=== PATIENT | female | born 1945 | race Caucasian/White ===

== ENCOUNTER → 2017-03-26 | Outpatient (CLI) | payer MEDICARE ==
--- NOTE | 2017-03-27 09:29 | MM ---
Reason for exam: screening (asymptomatic). Last mammogram was performed 1 year and 4 months ago. History: Patient is postmenopausal, has history of other cancer at age 65, and had first child at age 32. Benign excisional biopsy of the right breast. Took estrogen for 5 years beginning at age 52. Took progesterone for 5 years 8 months beginning at age 52. Taking other hormone for 2 years. Physical Findings: A clinical breast exam by your physician is recommended on an annual basis and results should be correlated with mammographic findings. MG 3D Screening Mammo W/Cad Bilateral CC and MLO view(s) were taken. Prior study comparison: November 13, 2015, bilateral MG 3d diag mammo w/cad [facility]. November 29, 2014, bilateral MG screening mammo w CAD. The breast tissue is heterogeneously dense. This may lower the sensitivity of mammography. No suspicious abnormality. No significant changes when compared with prior studies. ASSESSMENT: Negative, BI-RAD 1 RECOMMENDATION: Routine screening mammogram of both breasts in 1 year.
== END | disposition home or self-care (01) ==
LOC: RADMAMWWP 13:43
PROVIDERS: ATTEND Internal Medicine Geriatric Medicine
DX: Z12.31 Encounter for screening mammogram for malignant neoplasm of breast (principal)
CPT/HCPCS: 77063; 77067

== ENCOUNTER 2018-03-12 02:58 | Emergency (ER) | payer MEDICARE ==
[2018-03-12] MEDS ORDERED: SODIUM CHLORIDE 0.9% 500 ML 500 ML IV STA (03:08)
[2018-03-12 03:47] LABS: Basophils # (A) 0.1 k/uL (0-0.2); Basophils % (A) 1 %; Eosinophils # (A) 0.1 k/uL (0-0.7); Eosinophils % (A) 2 %; HCT 39.5 % (34.0-46.0); HGB 12.7 gm/dL (11.4-16.0); Lymphocytes # (A) 1.4 k/uL (1.0-4.8); Lymphocytes % (A) 23 %; MCH 29.4 pg (25.0-35.0); MCHC 32.1 g/dL (31.0-37.0); MCV 91.7 fL (80.0-100.0); Mean Platelet Volume 7.1; Monocytes # (A) 0.5 k/uL (0-1.0); Monocytes % (A) 8 %; Neutrophils % (A) 65 %; Platelet Count 297 k/uL (150-450); RBC 4.31 m/uL (3.80-5.40); RDW 12.5 % (11.5-15.5); WBC 6.1 k/uL (3.8-10.6)
--- NOTE | 2018-03-12 03:49 | XR ---
EXAMINATION TYPE: XR chest 2V DATE OF EXAM: 03/12/2018 COMPARISON: NONE HISTORY: Chest pain TECHNIQUE: Frontal and lateral views of the chest are obtained. FINDINGS: Heart and mediastinum are normal. Lungs are clear. Diaphragm is normal. There are chest le ads. Bony thorax is intact. IMPRESSION: Normal chest. Normal heart.
[2018-03-12 03:54] LABS: Albumin 3.4 g/dL (3.5-5.0); Calcium 8.9 mg/dL (8.4-10.2); Magnesium 2.5 mg/dL (1.6-2.3); Potassium 4.8 mmol/L (3.5-5.1); Total Bilirubin 0.4 mg/dL (0.2-1.3); Total Protein 6.1 g/dL (6.3-8.2)
[2018-03-12 04:11] LABS: Creatine Kinase 21 U/L (30-135)
[2018-03-12 04:12] LABS: Partial Thromboplastin Time 21.9 sec (22.0-30.0); Prothrombin Time 10.5 sec (9.0-12.0)
[2018-03-12 04:22] LABS: Creatine Kinase MB 0.2 ng/mL (0.0-2.4); Troponin I <0.012 ng/mL (0.000-0.034)
--- NOTE | 2018-03-12 04:30 | ED ---
General Adult HPI - General Chief complaint: Chest Pain Stated complaint: CHEST PAIN Time Seen by Provider: 03/12/18 03:08 Source: patient Mode of arrival: ambulatory Limitations: no limitations - History of Present Illness Initial comments: Caridad is a previously healthy and very pleasant 72-year-old female who presents the emergency department today for evaluation of sudden onset epigastric and retrosternal pain that woke her from sleep. Patient reports that she's been battling URI-like symptoms recently but has been otherwise feeling well. She reports she was feeling okay when she went to bed last night. She reports that she was woken with a sudden stabbing pain in the epigastrium and retrosternal area. She reports the pain was so severe she became sweaty and was feeling quite unwell. She reports the sensation lasted for approximately 30 minutes and then resolved completely however she decided to come to the ER for further evaluation. Patient has no history of cardiac disease, no hypertension, hyperlipidemia no history of smoking. Patient has no known GI pathology, she has had a cholecystectomy, she has no history of pancreatitis. - Related Data Home Medications Medication Instructions Recorded Confirmed Fexofenadine HCl [Natalie Allergy] 180 mg PO DAILY 03/12/18 03/12/18 Magnesium 200 mg PO DAILY 03/12/18 03/12/18 Multivitamins, Thera [Multivitamin 1 tab PO DAILY 03/12/18 03/12/18 (formulary)] Allergies Allergy/AdvReac Type Severity Reaction Status Date / Time doxycycline Allergy Rash/Hives Verified 03/12/18 06:59 Sulfa (Sulfonamide Allergy Rash/Hives Verified 03/12/18 06:59 Antibiotics) Review of Systems ROS Statement: Those systems with pertinent positive or pertinent negative responses have been documented in the HPI. ROS Other: All systems not noted in ROS Statement are negative. Past Medical History Past Medical History: No Reported History History of Any Multi-Drug Resistant Organisms: None Reported Past Surgical History: Cholecystectomy Past Psychological History: No Psychological Hx Reported Smoking Status: Never smoker Past Alcohol Use History: Occasional Past Drug Use History: None Reported General Exam - General Exam Comments Initial Comments: Physical Exam GENERAL: Patient is well-developed and well-nourished. Patient is nontoxic and well- hydrated and is in no distress. HENT: Normocephalic, Atraumatic. EYES: PERRL, EOMI PULMONARY: Unlabored respirations. No audible rales rhonchi or wheezing was noted. CARDIOVASCULAR: There is a regular rate and rhythm without any murmurs gallops or rubs. ABDOMEN: Soft and nontender with normal bowel sounds. SKIN: Skin is clear with no lesions or rashes and otherwise unremarkable. : Deferred NEUROLOGIC: Patient is alert and oriented x3. Moving all extremities spontaneously MUSCULOSKELETAL: Normal extremities with adequate strength and full range of motion. No lower extremity swelling or edema. No calf tenderness. PSYCHIATRIC: Normal psychiatric evaluation. Limitations: no limitations Limitations: no limitations Course Vital Signs 03/12/18 03/12/18 03/12/18 03:00 03:19 03:25 Temperature 97.6 F 98.6 F Pulse Rate 65 60 64 Respiratory 20 14 Rate Blood Pressure 105/56 115/63 O2 Sat by Pulse 100 100 100 Oximetry 03/12/18 03/12/18 03/12/18 04:00 05:00 08:00 Temperature 97.8 F Pulse Rate 61 64 78 Respiratory 16 Rate Blood Pressure 103/64 93/57 112/68 O2 Sat by Pulse 98 99 98 Oximetry EKG Findings - EKG Comments: EKG Findings:: EKG obtained at 3:14 AM, rate is 61, rhythm is sinus, normal axis , normal intervals, no acute ST elevations or depressions no evidence of acute ischemia or infarction Medical Decision Making - Medical Decision Making Patient was seen and evaluated, history is obtained from the patient, 72-year- old female with no cardiac risk factors aside from her age who presents the emergency department after being woken by a stabbing epigastric retrosternal pain that lasted approximately 30 minutes, was associated with some diaphoresis and lightheadedness. Patient has no cardiac history or GI history, she is arty had a cholecystectomy in the past. Labs and imaging were ordered EKG was nonischemic, chest x-ray unremarkable Labs reveal mildly elevated transaminases, ultrasound to evaluate the liver was ordered Patient is remained asymptomatic while in the emergency department. At this time the patient would like to be discharged home, advised the patient that given the description of her pain I do feel she requires further evaluation by cardiology. Patient does not wish to stay in the emergency department to await the results of her ultrasound or be placed in observation be evaluated by cardiology. The patient has decided to leave against medical advice because she does not feel this was a cardiac event and would like to follow up outpatient. The patient has adequate capacity to make medical decisions. The patient refuses hospital admission and wants to be discharged. The risks have been explained to the patient, including worsening illness, chronic pain, permanent disability and . The benefits of workup/admission have also been explained, including the availability and proximity of nurses, physicians, monitoring, diagnostic testing , treatment and evaluation by cardiology The patient was able to understand and state the risks and benefits of hospital admission. The patient the opportunity to ask questions about their medical condition. The patient was treated to the extent that they would allow and knows that they may return for care at any time. - Lab Data Result diagrams: 03/12/18 03:34 03/12/18 03:34 Lab Results 03/12/18 03/12/18 03/12/18 Range/Units 03:34 03:34 03:34 WBC 6.1 (3.8-10.6) k/uL RBC 4.31 (3.80-5.40) m/uL Hgb 12.7 (11.4-16.0) gm/dL Hct 39.5 (34.0-46.0) % MCV 91.7 (80.0-100.0) fL MCH 29.4 (25.0-35.0) pg MCHC 32.1 (31.0-37.0) g/dL RDW 12.5 (11.5-15.5) % Plt Count 297 (150-450) k/uL Neutrophils % 65 % Lymphocytes % 23 % Monocytes % 8 % Eosinophils % 2 % Basophils % 1 % Neutrophils # 4.0 (1.3-7.7) k/uL Lymphocytes # 1.4 (1.0-4.8) k/uL Monocytes # 0.5 (0-1.0) k/uL Eosinophils # 0.1 (0-0.7) k/uL Basophils # 0.1 (0-0.2) k/uL PT (9.0-12.0) sec INR (<1.2) APTT (22.0-30.0) sec Sodium 137 (137-145) mmol/L Potassium 4.8 (3.5-5.1) mmol/L Chloride 106 (98-107) mmol/L Carbon Dioxide 27 (22-30) mmol/L Anion Gap 4 mmol/L BUN 20 H (7-17) mg/dL Creatinine 0.91 (0.52-1.04) mg/dL Est GFR (CKD-EPI)AfAm 73 (>60 ml/min/1.73 sqM) Est GFR (CKD-EPI)NonAf 64 (>60 ml/min/1.73 sqM) Glucose 92 (74-99) mg/dL Calcium 8.9 (8.4-10.2) mg/dL Magnesium 2.5 H (1.6-2.3) mg/dL Total Bilirubin 0.4 (0.2-1.3) mg/dL AST 66 H (14-36) U/L ALT 63 H (9-52) U/L Alkaline Phosphatase 72 (38-126) U/L Total Creatine Kinase 21 L (30-135) U/L CK-MB (CK-2) 0.2 (0.0-2.4) ng/mL CK-MB (CK-2) Rel Index 1.0 Troponin I <0.012 (0.000-0.034) ng/mL NT-Pro-B Natriuret Pep pg/mL Total Protein 6.1 L (6.3-8.2) g/dL Albumin 3.4 L (3.5-5.0) g/dL Amylase (30-110) U/L Lipase (23-300) U/L 03/12/18 03/12/18 03/12/18 Range/Units 03:34 03:34 03:34 WBC (3.8-10.6) k/uL RBC (3.80-5.40) m/uL Hgb (11.4-16.0) gm/dL Hct (34.0-46.0) % MCV (80.0-100.0) fL MCH (25.0-35.0) pg MCHC (31.0-37.0) g/dL RDW (11.5-15.5) % Plt Count (150-450) k/uL Neutrophils % % Lymphocytes % % Monocytes % % Eosinophils % % Basophils % % Neutrophils # (1.3-7.7) k/uL Lymphocytes # (1.0-4.8) k/uL Monocytes # (0-1.0) k/uL Eosinophils # (0-0.7) k/uL Basophils # (0-0.2) k/uL PT 10.5 (9.0-12.0) sec INR 1.0 (<1.2) APTT 21.9 L (22.0-30.0) sec Sodium (137-145) mmol/L Potassium (3.5-5.1) mmol/L Chloride (98-107) mmol/L Carbon Dioxide (22-30) mmol/L Anion Gap mmol/L BUN (7-17) mg/dL Creatinine (0.52-1.04) mg/dL Est GFR (CKD-EPI)AfAm (>60 ml/min/1.73 sqM) Est GFR (CKD-EPI)NonAf (>60 ml/min/1.73 sqM) Glucose (74-99) mg/dL Calcium (8.4-10.2) mg/dL Magnesium (1.6-2.3) mg/dL Total Bilirubin (0.2-1.3) mg/dL AST (14-36) U/L ALT (9-52) U/L Alkaline Phosphatase (38-126) U/L Total Creatine Kinase (30-135) U/L CK-MB (CK-2) (0.0-2.4) ng/mL CK-MB (CK-2) Rel Index Troponin I (0.000-0.034) ng/mL NT-Pro-B Natriuret Pep 99 pg/mL Total Protein (6.3-8.2) g/dL Albumin (3.5-5.0) g/dL Amylase 69 (30-110) U/L Lipase 147 (23-300) U/L Disposition Clinical Impression: Chest pain, Elevated transaminase level Disposition: Left Against Medical Advice Condition: Stable Instructions: Chest Pain (ED) Is patient prescribed a controlled substance at d/c from ED?: No Referrals: Glen Crouch MD [Primary Care Provider] - 1-2 days
[2018-03-12 05:26] LABS: Amylase 69 U/L (30-110); Lipase 147 U/L (23-300)
--- NOTE | 2018-03-12 07:45 | US ---
EXAMINATION TYPE: US abdomen limited DATE OF EXAM: 03/12/2018 COMPARISON: CT from 2010 CLINICAL HISTORY: Pain. EXAM MEASUREMENTS: Liver Length: 13 cm Gallbladder Wall: Surgically absent cm CBD: 0.6 cm Right Kidney: 8.9 x 3.2 x 3.9 cm Pancreas: Duct seen measuring 0.2cm. Liver: wnl Gallbladder: Surgically absent Evidence for sonographic Blanton's sign: No CBD: wnl Right Kidney: wnl Visualized pancreas is unremarkable. Visualized liver also is unremarkable. Gallbladder noted surgica lly absent. Limited images right kidney show no gross hydronephrosis. No suspicious biliary dilatatio n is present. IMPRESSION: No suspicious finding seen to account for patient's symptoms of pain.
[2018-03-12 08:02] VITALS: BP 112/68; PULSE 78; RESP 16; TEMP 97.8
== END 2018-03-12 08:00 | disposition left against medical advice (07) ==
LOC: EC 02:58
DX: R74.0 Nonspecific elevation of levels of transaminase and lactic acid dehydrogenase [LDH] (principal); R07.89 Other chest pain; R10.13 Epigastric pain; R61 Generalized hyperhidrosis; R42 Dizziness and giddiness; Z88.1 Allergy status to other antibiotic agents; Z88.2 Allergy status to sulfonamides; Z79.899 Other long term (current) drug therapy; Z90.49 Acquired absence of other specified parts of digestive tract
CPT/HCPCS: 96361 ×4; 96360 ×2; 99285 ×2; 36415 ×2; 93005; 83880; 80053; 82150; 82565; 82550; 82553; 83690; 83735; 84520; 84484; 85025; 85610; 85730; 71046; 76705; 71275; Q9967

== ENCOUNTER → 2018-03-12 | Outpatient (CLI) | payer MEDICARE ==
--- NOTE | 2018-03-12 13:56 | CT ---
EXAMINATION TYPE: CT angio chest DATE OF EXAM: 03/12/2018 COMPARISON: NONE HISTORY: SOB, elevated d-dimer and chest pain CT DLP: 111.1 mGycm. Automated Exposure Control for Dose Reduction was Utilized. CONTRAST: CTA scan of the thorax is performed with IV Contrast, patient injected with 100 mL of Isovue 370, pul monary embolism protocol. MIP Images are created on CT scanner and reviewed. FINDINGS: LUNGS: There is mild biapical pleural/parenchymal scarring otherwise the lungs are clear. No suspici ous nodules or masses are present bilaterally. There is no pleural effusion or pneumothorax seen. Th e tracheobronchial tree is patent. MEDIASTINUM: There is satisfactory enhancement of the pulmonary artery and its branches, there is no CT evidence for pulmonary embolism. There are no greater than 1 cm hilar or mediastinal lymph nodes. No cardiomegaly or pericardial effusion is seen. OTHER: No additional significant abnormality is seen. IMPRESSION: No CT evidence for acute pulmonary embolism. No suspicious acute process.
== END | disposition home or self-care (01) ==
LOC: RADCTMAIN 12:34
PROVIDERS: ATTEND Internal Medicine Geriatric Medicine
DX: I26.99 Other pulmonary embolism without acute cor pulmonale (principal)
CPT/HCPCS: 82565; 84520; 71275; 36415; Q9967

== ENCOUNTER → 2018-04-02 | Outpatient (CLI) | payer MEDICARE ==
--- NOTE | 2018-04-05 14:39 | MM ---
Reason for exam: screening (asymptomatic). Last mammogram was performed 1 year ago. History: Patient is postmenopausal, has history of other cancer at age 65, and had first child at age 32. Benign excisional biopsy of the right breast. Took estrogen for 5 years beginning at age 52. Took progesterone for 5 years 8 months beginning at age 52. Taking other hormone for 2 years. MG 3D Screening Mammo W/Cad Bilateral CC and MLO view(s) were taken. Prior study comparison: March 26, 2017, bilateral MG 3d screening mammo w/cad. November 13, 2015, bilateral MG 3d diag mammo w/cad [facility]. The breast tissue is heterogeneously dense. This may lower the sensitivity of mammography. Post biopsy changes on right breast. No suspicious abnormality. No significant changes when compared with prior studies. ASSESSMENT: Benign, BI-RAD 2 RECOMMENDATION: Routine screening mammogram of both breasts in 1 year.
== END | disposition home or self-care (01) ==
LOC: RADMAMWWP 09:12
PROVIDERS: ATTEND Internal Medicine Geriatric Medicine
DX: Z12.31 Encounter for screening mammogram for malignant neoplasm of breast (principal)
CPT/HCPCS: 77063; 77067

== ENCOUNTER → 2019-04-08 | Outpatient (CLI) | payer MEDICARE ==
--- NOTE | 2019-04-12 09:02 | MM ---
Reason for exam: screening (asymptomatic). Last mammogram was performed 1 year ago. History: Patient is postmenopausal, has history of other cancer at age 65, and had first child at age 32. Benign excisional biopsy of the right breast. Took estrogen for 5 years beginning at age 52. Took progesterone for 5 years 8 months beginning at age 52. Taking other hormone for 2 years. Physical Findings: A clinical breast exam by your physician is recommended on an annual basis and results should be correlated with mammographic findings. MG 3D Screening Mammo W/Cad Bilateral CC and MLO view(s) were taken. Prior study comparison: April 02, 2018, bilateral MG 3d screening mammo w/cad. March 26, 2017, bilateral MG 3d screening mammo w/cad. The breast tissue is heterogeneously dense. This may lower the sensitivity of mammography. Asymmetry greater in the right breast, stable. No significant changes when compared with prior studies. ASSESSMENT: Benign, BI-RAD 2 RECOMMENDATION: Routine screening mammogram of both breasts in 1 year.
== END | disposition home or self-care (01) ==
LOC: RADMAMWWP 14:48
PROVIDERS: ATTEND Internal Medicine Geriatric Medicine
DX: Z12.31 Encounter for screening mammogram for malignant neoplasm of breast (principal)
CPT/HCPCS: 77063; 77067

== ENCOUNTER → 2020-08-18 | Outpatient (CLI) | payer MEDICARE ==
--- NOTE | 2020-08-22 11:11 | MM ---
Reason for exam: screening (asymptomatic). Last mammogram was performed 1 year and 4 months ago. History: Patient is postmenopausal, has history of other cancer at age 65, and had first child at age 32. Benign excisional biopsy of the right breast. Took estrogen for 5 years beginning at age 52. Took progesterone for 5 years 8 months beginning at age 52. Taking other hormone for 2 years. Physical Findings: A clinical breast exam by your physician is recommended on an annual basis and results should be correlated with mammographic findings. MG 3D Screening Mammo W/Cad Bilateral CC and MLO view(s) were taken. Prior study comparison: April 08, 2019, bilateral MG 3d screening mammo w/cad. April 02, 2018, bilateral MG 3d screening mammo w/cad. The breast tissue is heterogeneously dense. This may lower the sensitivity of mammography. Finding: There is a 8 mm equal density (isodense), obscured mass in the subareolar position of the right breast. ASSESSMENT: Incomplete: need additional imaging evaluation, BI-RAD 0 RECOMMENDATION: Special view mammogram of the right breast. If lesion persists on supplemental views, image directed ultrasound is recommended. [facility] will attempt to contact patient to return for supplemental views and ultrasound if indicated.
== END | disposition home or self-care (01) ==
LOC: RADMAMWWP 11:14
PROVIDERS: ATTEND Internal Medicine Geriatric Medicine
DX: Z12.31 Encounter for screening mammogram for malignant neoplasm of breast (principal); Z78.0 Asymptomatic menopausal state
CPT/HCPCS: 77063; 77067

== ENCOUNTER → 2020-08-30 | Outpatient (CLI) | payer MEDICARE ==
--- NOTE | 2020-08-31 07:55 | MM ---
Reason for exam: additional evaluation requested from abnormal screening. Last mammogram was performed less than 1 month ago. History: Patient is postmenopausal, has history of other cancer at age 65, and had first child at age 32. Benign excisional biopsy of the right breast. Took estrogen for 5 years beginning at age 52. Took progesterone for 5 years 8 months beginning at age 52. Taking other hormone for 2 years. Physical Findings: Nurse did not find any significant physical abnormalities on exam. MG 3D Work Up W/Cad RT Spot compression CC, spot compression MLO, and LM view(s) were taken of the right breast. Prior study comparison: August 18, 2020, bilateral MG 3d screening mammo w/cad. April 08, 2019, bilateral MG 3d screening mammo w/cad. The breast tissue is heterogeneously dense. This may lower the sensitivity of mammography. No distinct lesion persists on additional views. These results were verbally communicated with the patient and result sheet given to the patient on 08/30/20. ASSESSMENT: Negative, BI-RAD 1 RECOMMENDATION: Return to routine screening mammogram schedule for both breasts.
== END | disposition home or self-care (01) ==
LOC: RADMAMWWP 14:13
PROVIDERS: ATTEND Internal Medicine Geriatric Medicine
DX: R92.2 Inconclusive mammogram (principal); Z78.0 Asymptomatic menopausal state
CPT/HCPCS: 77065; G0279; 77061

== ENCOUNTER → 2021-09-10 | Outpatient (CLI) | payer MEDICARE ==
--- NOTE | 2021-09-10 17:40 | BD ---
EXAMINATION TYPE: Axial Bone Density DATE OF EXAM: 09/10/2021 COMPARISON: 11/29/2014 CLINICAL HISTORY: 75 years year old Female. ICD-10 CODE: M81.0 AGE RELATED OSTEOPOROSIS Height: 63 IN Weight: 116 LBS RISK FACTORS HISTORY OF: Family History of Osteoporosis: YES MOTHER Active: YES Postmenopausal woman: AGE 48 Take estrogen and/or progesterone medications: NOT NOW How long: TOOK FOR 6 YEARS MEDICATIONS: Additional Medications: CALCIUM, VIT D, EYE VITAMINS, ALPHALYPOIC ACID, MAGNESIUM, COQ10 EXAM MEASUREMENTS: Bone mineral densitometry was performed using the [employer]. Bone mineral density as measured about the Lumbar spine is: ----- L1-L4(G/cm2): 1.190 T Score Values are as follows: ----- L1: -0.5 ----- L2: -0.6 ----- L3: 0.3 ----- L4: 0.9 ----- L1-L4: 0.1 Bone mineral density has: Increased 1.2% since study of: 11/29/2014 Bone mineral density about the R hip (g/cm2): 0.713 Bone mineral density about the L hip (g/cm2): 0.768 T Score values are as follows: -----R Neck: -2.3 -----L Neck: -1.9 -----R Total: -1.9 -----L Total: -1.7 Bone mineral density has: Decreased -2.6% since study of: 11/29/2014 FRAX%s: The graph provided illustrates a 13.6 chance for a major osteoporotic fx and a 4.3 chance for the hips probability for fx in 10 years time. IMPRESSION: Osteopenia (T Score between -2.5 and -1). There is slightly increased risk of fracture and the patient may be considered for treatment. Re-Screen 2-5 years. NOTE: T-SCORE=SD OF THE YOUNG ADULT MEAN.
--- NOTE | 2021-09-11 13:38 | MM ---
Reason for Exam: Screening (asymptomatic). Last mammogram was performed 1 year(s) and 1 month(s) ago. Patient History: Menarche at age 12. First Full-Term at age 32. Late child-bearing (after 30). Postmenopausal. Other cancer, age 65. Estrogen for 5 years from age 52 until age 58. Progesterone for 5 years, 8 months, from age 52 until age 58. Benign Excisional Biopsy on the right side. Risk Values: Mer 5 year model risk: 3.2%. NCI Lifetime model risk: 7.2%. Prior Study Comparison: 04/08/2019 Bilateral Screening Mammogram, [facility]. 08/18/2020 Bilateral Screening Mammogram, [facility]. 08/30/2020 Right Diagnostic Mammogram, [facility]. Tissue Density: The breast tissue is heterogeneously dense. This may lower the sensitivity of mammography. Findings: Analyzed By CAD. Parenchymal pattern appears stable. No suspicious groups of microcalcifications, spiculated or lobular masses, architectural distortion or other secondary signs of malignancy are mammographically apparent. Overall Assessment: Benign, BI-RAD 2 Management: Screening Mammogram of both breasts in 1 year. A negative mammogram report should not preclude additional follow up of suspicious palpable abnormalities. Patient should continue monthly self breast exam. A clinical breast exam by your physician is recommended on an annual basis and results should be correlated with mammographic findings. Electronically signed and approved by: Patel Rao D.O. Radiologis
== END | disposition home or self-care (01) ==
LOC: RADMAMWWP 13:54
PROVIDERS: ATTEND Internal Medicine Geriatric Medicine
DX: Z12.31 Encounter for screening mammogram for malignant neoplasm of breast (principal); R92.8 Other abnormal and inconclusive findings on diagnostic imaging of breast; M81.0 Age-related osteoporosis without current pathological fracture
CPT/HCPCS: 77063; 77067; 77080

== ENCOUNTER → 2022-09-13 | Outpatient (CLI) | payer MEDICARE ==
--- NOTE | 2022-09-16 10:54 | MM ---
Reason for Exam: Screening (asymptomatic). Last screening mammogram was performed 12 month(s) ago. Patient History: Menarche at age 12. First Full-Term at age 32. Late child-bearing (after 30). Postmenopausal. Other cancer, age 65. Estrogen for 5 years from age 52 until age 58. Progesterone for 5 years, 8 months, from age 52 until age 58. Benign Excisional Biopsy on the right side. Risk Values: Mer 5 year model risk: 3.2%. NCI Lifetime model risk: 6.8%. Prior Study Comparison: 08/18/2020 Bilateral Screening Mammogram, [facility]. 08/30/2020 Right Diagnostic Mammogram, [facility]. 09/10/2021 Bilateral MG 3D screening mammo w/cad, [facility]. Tissue Density: The breast tissue is heterogeneously dense. This may lower the sensitivity of mammography. Findings: Analyzed By CAD. Pattern appears symmetrical. There is some increasing focal lobular density in the upper outer left breast appears somewhat more full than comparison studies. Additional evaluation recommended with compression views. Standard left mediolateral view is recommended. Ultrasound may be required complete the workup. In the right breast, No suspicious groups of microcalcifications, spiculated or lobular masses, architectural distortion or other secondary signs of malignancy are mammographically apparent. Overall Assessment: Incomplete: need additional imaging evaluation, BI-RAD 0 Management: Diagnostic Mammogram of the left breast. A negative mammogram report should not preclude additional follow up of suspicious palpable abnormalities. Patient should continue monthly self breast exam. A clinical breast exam by your physician is recommended on an annual basis and results should be correlated with mammographic findings. Electronically signed and approved by: Patel Rao D.O. Radiologis
== END | disposition home or self-care (01) ==
LOC: RADMAMWWP 09:15
PROVIDERS: ATTEND Internal Medicine Geriatric Medicine
DX: Z12.31 Encounter for screening mammogram for malignant neoplasm of breast (principal); Z78.0 Asymptomatic menopausal state
CPT/HCPCS: 77063; 77067

== ENCOUNTER → 2022-09-19 | Outpatient (CLI) | payer MEDICARE ==
--- NOTE | 2022-09-19 07:58 | MM ---
Reason for Exam: Additional evaluation requested from abnormal screening. Last screening mammogram was performed less than 1 month ago. Patient History: Menarche at age 12. First Full-Term at age 32. Late child-bearing (after 30). Postmenopausal. Patient has history of breast feeding. Other cancer, age 65. Estrogen for 5 years from age 52 until age 58. Progesterone for 5 years, 8 months, from age 52 until age 58. Benign Excisional Biopsy on the right side. Risk Values: Mer 5 year model risk: 3.2%. NCI Lifetime model risk: 6.8%. Prior Study Comparison: 03/26/2017 Bilateral Screening Mammogram, [facility]. 04/02/2018 Bilateral Screening Mammogram, [facility]. 04/08/2019 Bilateral Screening Mammogram, [facility]. 08/18/2020 Bilateral Screening Mammogram, [facility]. 08/30/2020 Right Diagnostic Mammogram, [facility]. 09/10/2021 Bilateral MG 3D screening mammo w/cad, [facility]. 09/13/2022 Bilateral MG 3D screening mammo w/cad, [facility]. Tissue Density: Left: The breast tissue is heterogeneously dense. This may lower the sensitivity of mammography. Findings: Analyzed By CAD. Asymmetry within the upper left breast middle appears to disperse with compression and does not appear significantly changed when compared to prior examinations in 2018. No new suspicious mass or calcifications. Asymmetry within the upper left breast middle depth appears to disperse with compression and does not appear significantly changed when compared to prior examinations in 2018. No new suspicious mass or calcifications. Overall Assessment: Benign, BI-RAD 2 Management: Screening Mammogram of both breasts in 1 year. A clinical breast exam by your physician is recommended on an annual basis and results should be correlated with mammographic findings. This exam should not preclude additional follow-up of suspicious palpable abnormalities. Results were given to the patient verbally at the time of exam. Note on Mer scores and lifetime risk: 1. A Mer score greater than 3% is considered moderate risk. If this is the case, consider specialist referral to assess eligibility for a risk reducing agent. If overall lifetime risk for the development of breast cancer is 20% or higher, the patient may qualify for future screening with alternating mammogram and breast MRI. Electronically signed and approved by: Richard Hills D.O.
== END | disposition home or self-care (01) ==
LOC: RADMAMWWP 07:32
PROVIDERS: ATTEND Internal Medicine Geriatric Medicine
DX: R92.8 Other abnormal and inconclusive findings on diagnostic imaging of breast (principal); Z78.0 Asymptomatic menopausal state
CPT/HCPCS: 77065; G0279; 77061

== ENCOUNTER → 2023-01-24 | Outpatient (CLI) | payer MEDICARE ==
[2023-01-24 10:16] VITALS: BP 105/71; PULSE 77; RESP 18; TEMP 98.1
--- NOTE | 2023-01-24 10:37 | P.GSHP ---
History of Present Illness H&P Date: 01/24/23 Chief Complaint: Breast pain Kvng is a 77 year old white female seen in consultation for Dr. Crouch regarding breast pain. She underwent a bilateral mammogram on 08/2322 following this a diagnostic mammogram of the left breast was recommended. This was performed on . Following this it was felt that the overall assessment was benign BIRADS 2. Repeat bilateral mammogram in 1 year was recommended. She is complaining of several months of left breast pain, it is intermittent and different locations. She is not complaining of any pain in her right breast. She is not complaining of any nipple discharge or skin changes.She had a bioipsy of the right breast about 30 years ago it was benign. 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 Social History: nicotine: none alcohol: wine three times a week drugs: none - Constitutional Constitutional: Denies chills, Denies fever - EENT Eyes: denies blurred vision, denies pain Ears: bilateral: tinnitus, deny: decreased hearing Ears, nose, mouth and throat: Denies headache, Denies sore throat - Breasts Breasts: bilateral: as per HPI - Cardiovascular Cardiovascular: Denies chest pain, Denies shortness of breath - Respiratory Respiratory: Denies cough, Denies 7 - Gastrointestinal Gastrointestinal: Denies abdominal pain, Denies diarrhea, Denies nausea, Denies vomiting - Genitourinary (Female) Genitourinary: Denies dysuria, Denies hematuria - Menstruation Menstruation: Reports postmenopausal - Musculoskeletal Musculoskeletal: Reports myalgias - Integumentary Integumentary: Denies pruritus, Denies rash - Neurological Neurological: Denies numbness, Denies weakness - Psychiatric Psychiatric: Denies anxiety, Denies depression - Endocrine Endocrine: Denies fatigue, Denies weight change - Hematologic/Lymphatic Comment: none - Allergic/Immunologic Allergic/Immunologic: Reports as per HPI Past Medical History Past Medical History: No Reported History History of Any Multi-Drug Resistant Organisms: None Reported Past Surgical History: Cholecystectomy Past Psychological History: No Psychological Hx Reported Smoking Status: Never smoker Past Alcohol Use History: Occasional Past Drug Use History: None Reported Medications and Allergies Home Medications Medication Instructions Recorded Confirmed Type Magnesium 200 mg PO DAILY 03/12/18 01/24/23 History Multivitamins, Thera [Multivitamin 1 tab PO DAILY 03/12/18 01/24/23 History (formulary)] Alpha Lipoic Acid 50 mg PO DAILY 01/24/23 01/24/23 History Calcium Carbonate [Calcium] 600 mg PO DAILY 01/24/23 01/24/23 History Cholecalciferol (Vitamin D3) 125 mcg PO DAILY 01/24/23 01/24/23 History [Vitamin D3 (125 MCG = 5,000 IU)] Mv-Min/FA/Vit K/Lutein/Zeaxant 1 each PO DAILY 01/24/23 01/24/23 History [Preservision Areds 2 Plus Mv] [place]-3 Fatty Acids [[place]-3] 1,000 mg PO DAILY 01/24/23 01/24/23 History Allergies Allergy/AdvReac Type Severity Reaction Status Date / Time doxycycline Allergy Rash/Hives Verified 01/24/23 10:06 Sulfa (Sulfonamide Allergy Rash/Hives Verified 01/24/23 10:06 Antibiotics) Surgical - Exam Vital Signs Temp Pulse Resp BP Pulse Ox 98.1 F 77 18 105/71 97 01/24/23 10:06 01/24/23 10:06 01/24/23 10:06 01/24/23 10:06 01/24/23 10:06 - General no distress - Eyes normal ocular movement - Neck trachea midline - Respiratory normal respiratory effort, clear to auscultation - Cardiovascular Heart Sounds: normal: S1, S2 - Abdomen Abdomen: soft, non tender, no guarding, no rigid, no rebound - Integumentary normal turgor - Neurologic no disoriented, no combative - Musculoskeletal normal gait - Psychiatric oriented to time, oriented to person, oriented to place, speech is normal, memory intact Breast Exam: BRA: 34A Inspection: Bilateral grade 2 ptosis Palpation: Right breast: Multiple positional exam fibrocystic changes no dominant masses or nodules of concern Right axilla: No adenopathy of concern Left breast: Multi-positional exam fibrocystic changes no dominant masses or nodules of concern Left axilla: No adenopathy of concern Results Bilateral mammogram and left breast diagnostic mammogram from August 2022 reviewed this is bilateral Bio-Rad 2 Assessment and Plan Assessment: Impression: Bilateral BIRADS 2 mammogram August 2022 Intermittent breast pain left breast On today's examination there is nothing which would warrant interventional biopsy Plan: Repeat bilateral mammogram August 2023 Book given regarding breast pain Patient to follow up sooner any questions or concerns Otherwise follow-up in August 2023 CC: Dr. Crouch
== END ==
LOC: WWCWWP 09:45
PROVIDERS: ATTEND Surgery
DX: N64.4 Mastodynia (principal); G25.81 Restless legs syndrome; Z86.69 Personal history of other diseases of the nervous system and sense organs; Z85.828 Personal history of other malignant neoplasm of skin; Z88.2 Allergy status to sulfonamides; Z88.8 Allergy status to other drugs, medicaments and biological substances

== ENCOUNTER → 2023-09-23 | Outpatient (CLI) | payer MEDICARE ==
--- NOTE | 2023-09-26 07:51 | MM ---
Reason for Exam: Screening (asymptomatic). Last mammogram was performed 1 year(s) and 1 month(s) ago. Patient History: Menarche at age 12. First Full-Term at age 32. Late child-bearing (after 30). Postmenopausal. Patient has history of breast feeding. Other cancer, age 65. Estrogen for 5 years from age 52 until age 58. Progesterone for 5 years, 8 months, from age 52 until age 58. Benign Excisional Biopsy on the right side. Risk Values: Mer 5 year model risk: 3.1%. NCI Lifetime model risk: 6.4%. Prior Study Comparison: 09/10/2021 Bilateral MG 3D screening mammo w/cad, [facility]. 09/13/2022 Bilateral MG 3D screening mammo w/cad, [facility]. 09/19/2022 Left MG 3D work up w/cad , [facility]. Tissue Density: The breasts are heterogeneously dense, which may obscure small masses. Findings: Analyzed By CAD. There is no suspicious group of microcalcifications or new suspicious mass in either breast. Overall Assessment: Benign, BI-RAD 2 Management: Screening Mammogram of both breasts in 1 year. . Patient should continue monthly self-breast exams. A clinical breast exam by your physician is recommended on an annual basis. This exam should not preclude additional follow-up of suspicious palpable abnormalities. Note on Mer scores and lifetime risk: 1. A Mer score greater than 3% is considered moderate risk. If this is the case, consider specialist referral to assess eligibility for a risk reducing agent. 2. If overall lifetime risk for the development of breast cancer is 20% or higher, the patient may qualify for future screening with alternating mammogram and breast MRI. Electronically signed and approved by: Glen Gonsales M.D. Radiologis
== END | disposition home or self-care (01) ==
LOC: RADMAMWWP 07:27
PROVIDERS: ATTEND Internal Medicine Geriatric Medicine
DX: Z12.31 Encounter for screening mammogram for malignant neoplasm of breast (principal); R92.8 Other abnormal and inconclusive findings on diagnostic imaging of breast; Z78.0 Asymptomatic menopausal state
CPT/HCPCS: 77063; 77067

== ENCOUNTER → 2024-10-20 | Outpatient (CLI) | payer MEDICARE ==
--- NOTE | 2024-10-20 16:21 | MM ---
Reason for Exam: Screening (asymptomatic). Last screening mammogram was performed 12 month(s) ago. Patient History: Menarche at age 12. First Full-Term at age 32. Late child-bearing (after 30). Postmenopausal. Patient has history of breast feeding. Other cancer, age 65. Estrogen for 5 years from age 52 until age 58. Progesterone for 5 years, 8 months, from age 52 until age 58. Benign Excisional Biopsy on the right side. Sister had breast cancer at or over age 50. Risk Values: Mer 5 year model risk: 4.6%. NCI Lifetime model risk: 8.6%. Prior Study Comparison: 09/13/2022 Bilateral MG 3D screening mammo w/cad, [facility]. 09/19/2022 Left MG 3D work up w/cad , [facility]. 09/23/2023 Bilateral MG 3D screening mammo w/cad, [facility]. Tissue Density: The breasts are extremely dense, which lowers the sensitivity of mammography. Findings: Analyzed By CAD. Central asymmetric density right breast is unchanged. There is no suspicious group of microcalcifications or new suspicious mass in either breast. Overall Assessment: Benign, BI-RAD 2 Management: Screening Mammogram of both breasts in 1 year. See note below in regards to the patient's increased 5 year Mer score. Patient should continue monthly self-breast exams. A clinical breast exam by your physician is recommended on an annual basis. This exam should not preclude additional follow-up of suspicious palpable abnormalities. Note on Mer scores and lifetime risk: 1. A Mer score greater than 3% is considered moderate risk. If this is the case, consider specialist referral to assess eligibility for a risk reducing agent. 2. If overall lifetime risk for the development of breast cancer is 20% or higher, the patient may qualify for future screening with alternating mammogram and breast MRI. [facility], , 10/20/2024 4:18 PM. Electronically signed and approved by: Gerald Sanches M.D. Radiologist
== END | disposition home or self-care (01) ==
LOC: RADMAMWWP 10:38
PROVIDERS: ATTEND Internal Medicine Geriatric Medicine
DX: Z12.31 Encounter for screening mammogram for malignant neoplasm of breast (principal); M81.0 Age-related osteoporosis without current pathological fracture; R92.343 Mammographic extreme density, bilateral breasts; Z78.0 Asymptomatic menopausal state; Z80.0 Family history of malignant neoplasm of digestive organs; Z80.3 Family history of malignant neoplasm of breast
CPT/HCPCS: 77063; 77067; 77080